=== PATIENT | female | born 1960 | race Caucasian/White ===

== ENCOUNTER 2018-02-08 13:32 | Emergency (ER) | payer SELFPAY ==
[~2018-02-08 13:32] MED LIST: ALPRAZOLAM1 MG PO; EFFEXOR-XR37.5 MG PO; FLEXERIL10 MG PO; MEDROXYPROGEST2.5 MG PO; METHOCARBAMOL750 MG PO; PERCOCET 325 MG1 TA2 PO; PERCOCET 325 MG1 TAB PO; PREMARIN 1.251.25 MG PO; VOLTAREN50 MG PO; ZOFRAN ODT4 MG PO; ZOFRAN4 MG PO
[2018-02-08 17:54] LABS: ABSOLUTE BASOPHIL COUNT 0.1 /CUMM (0.0-0.2); ABSOLUTE EOSINOPHIL COUNT 0.4 /CUMM (0.0-0.7); ABSOLUTE GRANULOCYTE CT 5.9 /CUMM (1.4-6.5); ABSOLUTE LYMPH COUNT 3.8 /CUMM (1.2-3.4); ABSOLUTE MONOCYTE COUNT 0.8 /CUMM (0.10-0.60); EOSINOPHIL % 3.2 % (0-5); GRANULOCYTE % 53.9 % (42.2-75.2); HEMATOCRIT 45.1 % (37-47); MEAN CORPUSCULAR HGB 29.6 PG (27.0-31.0); MEAN CORPUSCULAR HGB CONC 34.5 G/DL (33.0-37.0); MEAN CORPUSCULAR VOLUME 85.8 FL (81.0-99.0); MEAN PLATELET VOLUME 8.4 FL (7.4-10.4); PLATELET COUNT 290 /CUMM (130-400); RBC DISTRIBUTION WIDTH 13.2 % (11.5-14.5); RED BLOOD CELL CT 5.26 /CUMM (4.20-5.40); WHITE BLOOD CELL COUNT 10.9 /CUMM (4.8-10.8)
[2018-02-08 18:19] VITALS: BP 120/75
--- NOTE | 2018-02-08 19:29 | CT SCAN REPORT ---
EXAMINATION: CT LUMBAR SPINE WITH CONTRAST CLINICAL INFORMATION: Back pain and reported palpable mass. COMPARISON: None TECHNIQUE: Following intravenous administration of 95 mL of Optiray 320, helical imaging was performed in the axial plane with generation of reformatted acquisitions. DLP: 406.8 mGy-cm FINDINGS: No soft tissue mass is identified in the paraspinal musculature or overlying subcutaneous fat in the patient's back. No encapsulated fatty lesions are seen. There is no abnormal enhancement. There is moderate to severe disc space narrowing with endplate osteophyte formation at L2-L3. Mild vacuum disc phenomenon noted at L4-L5. There is exuberant multilevel facet arthropathy, most significant at L4-L5. No compression fractures or subluxations are seen. No significant disc pathology evident at L1-L2 where there is mild facet arthrosis without significant foraminal encroachment. At the L2-L3 level, there is a diffuse disc bulge with endplate spurring and facet arthropathy resulting in mild central canal stenosis and ventral thecal sac deformity. Moderate bilateral foraminal narrowing. At the L3-L4 level, there is a broad-based posterior disc bulge and mild to moderate facet degeneration, worse on the right side with bony spurring distorting the exiting right L3 nerve root. At the L4-L5 level, there is mild central canal stenosis with posterior ligamentous thickening and a diffuse circumferential disc bulge. Moderate facet degeneration is also evident with moderate right foraminal narrowing. Left foraminal disc protrusion and osseous spurring result in severe left foraminal encroachment. At the L5-S1 level, there is a mild posterior disc bulge and facet arthropathy without central canal stenosis. Bulging disc results in mild to moderate right foraminal encroachment. IMPRESSION: No soft tissue mass or abnormal enhancement identified. Multilevel facet arthropathy and degenerative disc disease. Moderate loss of disc height at L2-L3 with mild central canal stenosis and moderate foraminal narrowing. Left foraminal disc protrusion at L4-L5 with osseous spurring results in significant encroachment and potential compression of the left L4 nerve root.
[2018-02-08] MEDS ORDERED: MEDROL4 M2 PO (19:40)
[2018-02-08] MEDS ORDERED: LIDODERM1 EACH TOP (19:40)
[2018-02-08] MEDS ORDERED: CYCLOBENZAPRINE10 M1 PO (19:40)
--- NOTE | 2018-02-08 19:42 | ED GENERAL ADULT ---
History of Present Illness General Chief Complaint: Low Back Pain/Injury Stated Complaint: SEVERE PAIN LLE AND LEFT SIDED LOWER BACK [id number] Source: patient Exam Limitations: no limitations Vital Signs & Intake/Output Vital Signs & Intake/Output Vital Signs Date Time Temp Pulse Resp B/P B/P Pulse O2 O2 Flow FiO2 Mean Ox Delivery Rate 02/08 1819 97.9 74 18 120/75 97 Room Air Room Air 02/08 1346 96.8 98 15 137/83 97 Room Air Room Air Allergies Coded Allergies: No Known Allergies (02/08/18) Reconcile Medications CYCLOBENZAPRINE HCL (Flexeril) 10 MG TAB 1 TAB PO TID PRN PAIN Cyclobenzaprine HCl 10 MG TABLET 1 TAB PO QPM PRN PAIN CYCLOBENZAPRINE HCL (Flexeril) 10 MG TAB 1 TAB PO TID PRN PAIN Estrogenic Subst Conj (Premarin) (Unknown Strength) TAB (Unknown Dose) PO DAILY HORMONE (Reported) Lidocaine (Lidoderm) 5 % ADH..PATCH 1 PAT TOP DAILY PRN PAIN may wear up to 12 hours Medroxyprogesterone Acetate (Medroxyprogesterone) 2.5 MG TAB 1 TAB PO DAILY HORMONE (Reported) Methylprednisolone. (Medrol) 4 MG TAB.DS.PK 1 DP PO AD SCIATICA 6 on day 1 then reduce by one tablet daily until gone Ondansetron (Zofran Odt) 4 MG ODT 1 TAB PO Q8P PRN NAUSEA OXYCODONE HCL/ACETAMINOPHEN (Percocet 10-325 MG Tablet) 325 MG/10 MG TAB 1 TAB PO Q8 PRN PAIN OXYCODONE HCL/ACETAMINOPHEN (Percocet 5-325 MG Tablet) 325 MG/5 MG TAB 1-2 TAB PO Q4-6 PRN PRN PAIN Triage Note: PT TO ED FOR L SIDED "GLUTE TO L FOOT" BURNING PAIN X 11 DAYS. PT REPORTS SHE THINKS IT'S SCIATICA. AMBULATORY IN TRIAGE. Triage Nurses Notes Reviewed? yes Onset: Gradual Duration: day(s): Timing: CONSTANT HPI: 57-year-old female with a history of sciatica presenting with back pain 11 days. Patient reports left lower back pain that radiates down her left buttock and left leg. States that the pain is better with movement, and worse with rest. States that the pain is at its peak when she wakes up in the morning after having laid in bed all night. She has tried [id number] pain medications without relief. States that she has had sciatica in the past and this feels like her usual sciatica. Denies any recent strenuous activity or trauma. Denies fevers, IV drug use, saddle anesthesia, urinary/bowel incontinence/retention, night sweats, weight loss. (Esther Patiño) Past History Travel History Traveled to [place] past 21 day No Medical History Any Pertinent Medical History? 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 No (Esther Patiño) Review of Systems Review of Systems Constitutional: Reports: no symptoms. EENTM: Reports: no symptoms. Respiratory: Reports: no symptoms. Cardiovascular: Reports: no symptoms. GI: Reports: no symptoms. Genitourinary: Reports: no symptoms. Musculoskeletal: Reports: see HPI. Skin: Reports: no symptoms. Neurological/Psychological: Reports: no symptoms. Hematologic/Endocrine: Reports: no symptoms. Immunologic/Allergic: Reports: no symptoms. All Other Systems: Reviewed and Negative (Esther Patiño) Physical Exam Physical Exam General Appearance: well developed/nourished, no apparent distress, alert, awake , comfortable Comments: Gen.: Well-nourished, well-developed, no acute distress. Head: Normocephalic, atraumatic. Eyes: Normal inspection bilaterally Ears: Normal inspection bilaterally Nose: Normal inspection Neck: Normal inspection Lungs: clear to auscultation bilaterally, normnal breath sounds Heart: regular rate and rhythm Abdomen: soft and non-tender Extremities: Normal inspection, bilateral lower extremities are neurovascularly intact Back: Normal inspection, positive tenderness to palpation over the left lower lumbar muscles, no midline tenderness to palpation, positive straight leg raise on the left side Neurologic: alert and oriented x3, able to bear weight and bili with a steady gait Skin: warm and dry Psychiatric: Normal mood and affect, no apparent delusions or hallucinations, behavior appropriate Core Measures ACS in differential dx? No CVA/TIA Diagnosis: No Sepsis Present: No Sepsis Focused Exam Completed? No (Esther Patiño) Progress Differential Diagnoses I considered the following diagnoses in my evaluation of the patient: [ Musculoskeletal strain versus disc herniation versus lumbar radiculopathy versus malignancy, will concern for cauda equina versus epidural abscess] Plan of Care: Orders Procedure Date/time Status COMPREHENSIVE METABOLIC PANEL 02/08 172 Complete CBC WITHOUT DIFFERENTIAL 02/08 1723 Complete Laboratory Tests 02/08/18 1743: Anion Gap 7, Estimated GFR > 60, BUN/Creatinine Ratio 24.3, Glucose 90, Calcium 9.4, Total Bilirubin 0.3, AST 30, ALT 40, Alkaline Phosphatase 60, Total Protein 7.0, Albumin 4.2, Globulin 2.8, Albumin/Globulin Ratio 1.5, CBC w Diff NO MAN DIFF REQ, RBC 5.26, MCV 85.8, MCH 29.6, MCHC 34.5, RDW 13.2, MPV 8.4, Gran % 53.9, Lymphocytes % 35.0, Monocytes % 6.9, Eosinophils % 3.2, Basophils % 1.0, Absolute Granulocytes 5.9, Absolute Lymphocytes 3.8 H, Absolute Monocytes 0.8 H, Absolute Eosinophils 0.4, Absolute Basophils 0.1 CT lumbar spine IMPRESSION: No soft tissue mass or abnormal enhancement identified. Multilevel facet arthropathy and degenerative disc disease. Moderate loss of disc height at L2-L3 with mild central canal stenosis and moderate foraminal narrowing. Left foraminal disc protrusion at L4-L5 with osseous spurring results in significant encroachment and potential compression of the left L4 nerve root. Labs unremarkable Patient's exam and CT findings are consistent with a lumbar radiculopathy. However, malignancy was highly considered as the patient reports pain that is worse with rest. She was counseled that if her pain continues she should receive an outpatient MRI with her PMD, and and the concern for malignancy was discussed with her. She expresses understanding. She states that she is no longer followed by her previous PMD, I asked registration to flag her for a phone call from [facility] to arrange a primary care provider. She was given strict return precautions. Discharge home with Rx Medrol Dosepak, Flexeril, Lidoderm patches Initial ED EKG: none (Esther Patiño) Departure Departure Disposition: HOME OR SELF CARE Condition: Stable Clinical Impression Primary Impression: Back pain Referrals: Zuhair Gutierrez MD (PCP/Family) Additional Instructions: Use ibuprofen, Flexeril, Lidoderm patches as needed for pain. Use Medrol Dosepak as prescribed. Follow-up with your primary care provider for reevaluation. Return to emergency department for any new or worsening symptoms. Departure Forms: Customer Survey General Discharge Information Prescriptions: Current Visit Scripts Lidocaine (Lidoderm) 1 PAT TOP DAILY PRN PAIN #30 PAT may wear up to 12 hours Cyclobenzaprine HCl 1 TAB PO QPM PRN PAIN #30 TAB Methylprednisolone. (Medrol) 1 DP PO AD #1 DP 6 on day 1 then reduce by one tablet daily until gone (Esther Patiño) PA/TAPE CALENDER Co-Sign Statement Statement: ED Attending supervision documentation- [] I saw and evaluated the patient. I have also reviewed all the pertinent lab results and diagnostic results. I agree with the findings and the plan of care as documented in the PA's/TAPE CALENDER's documentation. [x] I have reviewed the ED Record and agree with the PA's/TAPE CALENDER's documentation. [] Additions or exceptions (if any) to the PAs/TAPE CALENDER's note and plan are summarized below: [] (Garcia Zepeda DO) Critical Care Note Critical Care Note Critical Care Time: non-applicable (Esther Patiño)
== END 2018-02-08 19:52 ==
LOC: ERH 13:32
PROVIDERS: Physician Assistant
DX: M54.5 Low back pain (principal)
CPT/HCPCS: 96372; J1885